=== PATIENT | female | born 1960 | race Caucasian/White ===

== ENCOUNTER → 2016-10-10 | Outpatient (CLI) | payer BC ==
[~2016-10-10] MED LIST: ADVAIR DIS1 PUFF/DO2 IH; DALIRESP500 MCG PO; DELTASONE DPS1 MG PO; DUONEB DPS3 ML IH; MAALOX DPS30 ML PO; PROAIR HFA8.5 GM IH; PROVENTIL2.5 MG/3 M IH; SPIRIVA18 MCG IH; TYLENOL DPS325 MG PO; ZYRTEC DPS10 MG PO
== END | disposition home or self-care (01) ==
LOC: RAD.S 10-02 14:00
DX: R91.1 Solitary pulmonary nodule (principal)